=== PATIENT | female | born 1980 | race Hispanic/Latino ===

== ENCOUNTER 2020-05-06 13:37 | Emergency (ER) | payer MEDICAID, OTHER ==
[2020-05-06] MEDS ORDERED: KETOROLAC TROMETHAMINE 60 MG/2 ML VIAL ONE (14:17)
== END 2020-05-06 14:58 | disposition home or self-care (01) ==
LOC: EDH 13:37
DX: S10.93XA Contusion of unspecified part of neck, initial encounter (principal); S30.0XXA Contusion of lower back and pelvis, initial encounter; W01.198A Fall on same level from slipping, tripping and stumbling with subsequent striking against other object, initial encounter; Y93.01 Activity, walking, marching and hiking; Y92.89 Other specified places as the place of occurrence of the external cause; Y99.8 Other external cause status
CPT/HCPCS: 72040; 72100; 96372; 99284; J1885

== ENCOUNTER 2020-06-18 14:48 | Emergency (ER) | payer OTHER ==
[2020-06-18 15:10] LABS: BASOPHILS % (AUTO) 0.3 % (0.0-5.0); EOSINOPHILS % (AUTO) 1.9 % (0.0-8.0); HEMATOCRIT 38.4 % (36-48); LYMPHOCYTES % (AUTO) 24.4 % (21.0-51.0); MEAN CORPUSCULAR HEMOGLOBIN 28.1 pg (27.0-33.0); MEAN CORPUSCULAR HGB CONC 32.6 g/dL (32.0-36.0); MEAN CORPUSCULAR VOLUME 86.3 fL (79-99); MONOCYTES % (AUTO) 7.8 % (3.0-13.0); NEUTROPHILS % (AUTO) 65.3 % (40.0-77.0); PLATELET COUNT (AUTO) 304 K/uL (130-400); RED BLOOD CELL COUNT(AUTO) 4.45 MIL/uL (4.00-5.50); RED CELL DISTRIBUTION WIDTH 12.2 % (11.0-15.5); WHITE BLOOD COUNT (AUTO) 6.3 K/uL (4.8-10.8)
[2020-06-18 15:24] LABS: CREATININE 0.7 mg/dL (0.5-1.5); POTASSIUM 4.3 mmol/L (3.5-5.1)
[2020-06-18 15:25] LABS: PARTIAL THROMBOPLASTIN TIME 27.5 SEC (26.3-35.5); PROTHROMBIN TIME 10.8 SEC (9.6-11.6)
[2020-06-18 15:29] LABS: ALBUMIN 3.6 g/dL (3.5-5.0); BILIRUBIN,TOTAL 0.4 mg/dL (0.2-1.0); TOTAL PROTEIN, SERUM 7.7 g/dL (6.0-8.3)
[2020-06-18] MEDS ORDERED: IOHEXOL 350 MG/ML 100ML INFUS..BTL IV ONE (15:58)
== END 2020-06-18 17:13 | disposition home or self-care (01) ==
LOC: EDH 14:48
DX: R07.89 Other chest pain (principal); F41.9 Anxiety disorder, unspecified; F32.9 Major depressive disorder, single episode, unspecified
CPT/HCPCS: 36415; 71045; 71275; 80053; 84484; 85025; 85610; 85730; 93005; 99285; Q9967

== ENCOUNTER 2023-10-01 06:52 | Emergency (ER) | payer OTHER ==
[~2023-10-01] VITALS: Ht 152.4 cm; Wt 72.6 kg
[2023-10-01] MEDS ORDERED: IBUP-2070 PO (08:48)
[2023-10-01] MEDS ORDERED: SULF1TAB42 PO (08:48)
[2023-10-01 09:21] VITALS: BP 130/74; PULSE 84; RESP 18; O2SAT 98
== END 2023-10-01 09:23 | disposition home or self-care (01) ==
LOC: EDH 06:52
DX: L60.0 Ingrowing nail (principal)

== ENCOUNTER → 2025-02-27 | Outpatient (CLI) | payer OTHER ==
[~2025-02-27] MED LIST: IBUP-1492 PO; SULF1TAB42 PO
--- NOTE | 2025-02-27 16:17 | HMCIMG ---
EXAM: XR Right Ankle, 2 View. CLINICAL HISTORY: COMPARISON: None provided. FINDINGS: BONES: There is an inferior calcaneal spur, otherwise no acute fracture or focal osseous lesion. JOINTS: No dislocation. The joint spaces are normal. SOFT TISSUES: The soft tissues are unremarkable. IMPRESSION: 1. No acute osseous abnormality. 2. Inferior calcaneal spur. /[place]
--- NOTE | 2025-02-27 16:18 | HMCIMG ---
EXAM: XR Left Ankle, 2 View. CLINICAL HISTORY: COMPARISON: None provided. FINDINGS: BONES: No acute fracture or focal osseous lesion. JOINTS: No dislocation. The joint spaces are normal. SOFT TISSUES: The soft tissues are unremarkable. The left ankle is negative. IMPRESSION: 1. No acute osseous abnormality. /[place]
== END | disposition home or self-care (01) ==
LOC: RAH 13:13
PROVIDERS: ATTEND Chiropractor
DX: M19.072 Primary osteoarthritis, left ankle and foot (principal); M19.071 Primary osteoarthritis, right ankle and foot; M77.31 Calcaneal spur, right foot
CPT/HCPCS: 73600